=== PATIENT | female | born 1935 | race Caucasian/White ===

== ENCOUNTER 2019-09-26 18:02 | Inpatient (IN) | payer MEDICARE ==
[~2019-09-26] VITALS: Ht 154.9 cm; Wt 74.4 kg
[2019-09-26 18:16] VITALS: BP 204/95
[2019-09-26] MEDS ORDERED: ASA81BEC PO (18:19)
[2019-09-26] MEDS ORDERED: LORATIDINE 10 M10 M1 PO (18:19)
[2019-09-26] MEDS ORDERED: LEVO-T100 MCG PO (18:20)
[2019-09-26] MEDS ORDERED: SUPER THERAVIT1 EACH PO (18:20)
[2019-09-26] MEDS ORDERED: COZAAR 25 MG TA25 M1 PO (18:20)
[2019-09-26] MEDS ORDERED: VITAMIN D31250 MCG PO (18:20)
[2019-09-26] MEDS ORDERED: ALLOPURINOL 10100 M3 PO (18:20)
[2019-09-26] MEDS ORDERED: ISOSORBIDE DINI20 M2 PO (18:21)
[2019-09-26] MEDS ORDERED: CLONIDINE HCL0.2 M2 PO (18:21)
[2019-09-26] MEDS ORDERED: TRAZODONE HCL50 MG PO (18:22)
[2019-09-26] MEDS ORDERED: LOPRESSOR50 MG PO (18:22)
[2019-09-26] MEDS ORDERED: MAGNESIUM250 M1 PO (18:22)
[2019-09-26] MEDS ORDERED: LIPITOR80 MG PO (18:22)
[2019-09-26] MEDS ORDERED: BREO ELLIPTA 11 EACH INH (18:22)
[2019-09-26] MEDS ORDERED: NOVOLIN N100 UNIT/1 (18:23)
[2019-09-26] MEDS ORDERED: FLONASE 0.05%50 MCG NARES (18:23)
[2019-09-26] MEDS ORDERED: BASAGLAR K100 UNIT/1 SUBQ (18:24)
[2019-09-26] MEDS ORDERED: SYSTANE 0.3-0.415 ML OPHTHALMIC (18:24)
[2019-09-26 19:00] LABS: ABSOLUTE BASOPHILS 0.1 thou/uL (0.0-0.2); ABSOLUTE EOSINOPHILS 0.3 thou/uL (0.0-0.7); ABSOLUTE LYMPHOCYTES 2.2 thou/uL (0.8-5.3); ABSOLUTE MONOCYTES 0.8 thou/uL (0.0-1.2); ABSOLUTE NEUTROPHILS 4.7 thou/uL (1.6-8.1); BASOPHILS 1.1 %; EOSINOPHILS 4.3 %; HEMATOCRIT 37.4 % (37.0-47.0); HEMOGLOBIN 12.8 gm/dL (12.0-15.0); LYMPHOCYTES 26.6 %; MCH 34.1 pg (26.0-34.0); MCHC 34.1 g/dL (28.0-37.0); MCV 99.9 fL (80.0-100.0); MONOCYTES 10.4 %; NUCLEATED RBCS 0 /100WBC; PLATELET COUNT* 187 thou/uL (150-400); POLYS 57.6 %; RBC 3.74 mil/uL (4.20-5.00); RDW-CV 14.3 % (10.5-14.5); WBC 8.1 thou/uL (4.0-11.0)
[2019-09-26 19:05] LABS: CALCIUM 8.7 mg/dL (8.5-10.1); CREATININE 1.2 mg/dL (0.6-1.3); POTASSIUM 4.2 mmol/L (3.5-5.1)
[2019-09-26 19:09] LABS: ALBUMIN 3.2 g/dL (3.4-5.0); TOTAL BILIRUBIN 0.4 mg/dL (<0.1-1.0); TOTAL PROTEIN 6.9 g/dL (6.4-8.2)
[2019-09-26 19:32] LABS: APTT 26.3 Seconds (25.0-31.3); PROTIME 10.5 Seconds (9.20-11.50)
[2019-09-26 21:30] VITALS: BP 143/70
[2019-09-26] MEDS ORDERED: NOVOLIN R100 UNIT/1 SUBQ ×3 (22:27→22:29)
[2019-09-26] MEDS ORDERED: LASIX 40 MG TAB40 MG PO (22:51)
[2019-09-27 00:30] VITALS: BP 171/74
[2019-09-27 02:49] LABS: URINE BILIRUBIN NEGATIVE (Negative); URINE BLOOD NEGATIVE (Negative); URINE CLARITY CLEAR; URINE COLOR YELLOW; URINE GLUCOSE-RANDOM NEGATIVE (Negative); URINE KETONES NEGATIVE (Negative); URINE LEUKOCYTES-REFLEX 1+ (Negative); URINE NITRITE-REFLEX NEGATIVE (Negative); URINE PROTEIN NEGATIVE (Negative); URINE SPECIFIC GRAVITY <= 1.005 (1.005-1.030); URINE UROBILINOGEN 0.2 E.U./dl (0.2-1.0)
[2019-09-27 02:55] LABS: CASTS None Seen /LPF (None Seen); SQUAMOUS 4-10 Moderate /LPF (0-3); URINE RBC None Seen /HPF (0-2); URINE WBC-REFLEX 6-15 Few /HPF (0-5)
[2019-09-27 02:56] LABS: BACTERIA-REFLEX 1-9 Few /HPF (None Seen); CRYSTALS None Seen /LPF (None Seen)
[2019-09-27 04:39] VITALS: BP 183/82
[2019-09-27 08:35] VITALS: BP 176/86
--- NOTE | 2019-09-27 10:14 | EKG ---
[place] [address] ELECTROCARDIOGRAM REPORT Name: NINO ASH Room: [address] ADM [place] [facility].#: [id number] Admission: 09/26/19 Attend Phys: Teja baeza Sa Discharge: Date of : 35 Date of Service: 09/26/192121 Report #: [id number] THIS REPORT FOR: //name// [facility] ED Test Date: 2019-09-26 Test Time: 21:22:08 Pat Name: NINO ASH Department: Room: [facility] Gender: F Clinical Research Specialist: DEBI : 1935 Requested By: Michael Lindsay Order Number: [id number] MD: Keith Paz Measurements Intervals [place] Rate: 61 P: 44 [place]: 194 QRS: -17 QRSD: 148 T: 151 QT: 466 QTc: 470 Interpretive Statements Sinus rhythm Left bundle branch block No previous ECG available for comparison Electronically Signed On 09-27-2019 10:12:38 CDT by Keith Paz [email or web address] <ELECTRONICALLY SIGNED> By: Keith Paz MD, [facility] 09/27/192 21 21 Keith Paz MD, [facility] /EPI
[2019-09-27 16:25] VITALS: BP 179/70
[2019-09-27 20:00] VITALS: BP 196/89
[2019-09-27 23:30] VITALS: BP 137/56
[2019-09-28 04:16] VITALS: BP 151/52
[2019-09-28 05:18] LABS: ABSOLUTE BASOPHILS 0.1 thou/uL (0.0-0.2); ABSOLUTE EOSINOPHILS 0.3 thou/uL (0.0-0.7); ABSOLUTE LYMPHOCYTES 2.1 thou/uL (0.8-5.3); ABSOLUTE MONOCYTES 0.7 thou/uL (0.0-1.2); ABSOLUTE NEUTROPHILS 4.3 thou/uL (1.6-8.1); BASOPHILS 1.1 %; EOSINOPHILS 4.6 %; HEMATOCRIT 34.3 % (37.0-47.0); HEMOGLOBIN 11.7 gm/dL (12.0-15.0); LYMPHOCYTES 27.6 %; MCH 34.1 pg (26.0-34.0); MCV 100.1 fL (80.0-100.0); MONOCYTES 9.9 %; MPV 9.9 fl. (7.2-11.1); NUCLEATED RBCS 0 /100WBC; PLATELET COUNT* 166 thou/uL (150-400); POLYS 56.8 %; RBC 3.43 mil/uL (4.20-5.00); WBC 7.5 thou/uL (4.0-11.0)
[2019-09-28 05:28] LABS: MAGNESIUM 1.6 mg/dL (1.8-2.4); PHOSPHORUS* 4.9 mg/dL (2.5-4.9)
[2019-09-28 05:33] LABS: ALBUMIN 2.8 g/dL (3.4-5.0); CALCIUM 7.8 mg/dL (8.5-10.1); CREATININE 1.5 mg/dL (0.6-1.3); POTASSIUM 3.9 mmol/L (3.5-5.1); TOTAL BILIRUBIN 0.4 mg/dL (<0.1-1.0); TOTAL PROTEIN 6.1 g/dL (6.4-8.2)
[2019-09-28 08:30] VITALS: BP 156/58
[2019-09-28 16:00] VITALS: BP 155/57
[2019-09-28 19:30] VITALS: BP 167/68
[2019-09-29 08:00] VITALS: BP 143/69
[2019-09-29] MEDS ORDERED: CEFDINIR300 MG PO (10:41)
[2019-09-29 11:06] VITALS: BP 143/69
[2019-09-29 11:36] VITALS: BP 143/69
== END 2019-09-29 12:21 | disposition home or self-care (01) | DRG 177 ==
LOC: M.ERS 18:02 → M.TBA-ER 19:47 → M.ORTHSURG 19:47 → M.2W 20:47 → M.ORTHSURG 20:48
PROVIDERS: Internal Medicine; Physician Assistant; Surgery; ADMIT Family Medicine
DX: J15.6 Pneumonia due to other Gram-negative bacteria (principal); J96.01 Acute respiratory failure with hypoxia; I10 Essential (primary) hypertension; E03.9 Hypothyroidism, unspecified; I25.10 Atherosclerotic heart disease of native coronary artery without angina pectoris; Z20.828 Contact with and (suspected) exposure to other viral communicable diseases; M19.90 Unspecified osteoarthritis, unspecified site; E11.51 Type 2 diabetes mellitus with diabetic peripheral angiopathy without gangrene; E83.42 Hypomagnesemia; E86.0 Dehydration; Z88.6 Allergy status to analgesic agent; Z88.8 Allergy status to other drugs, medicaments and biological substances; Z79.4 Long term (current) use of insulin; Z79.82 Long term (current) use of aspirin; Z79.899 Other long term (current) drug therapy; Z95.1 Presence of aortocoronary bypass graft

== ENCOUNTER 2020-03-24 12:13 | Inpatient (IN) | payer MEDICARE ==
[~2020-03-24] VITALS: Ht 154.9 cm; Wt 70.0 kg
--- NOTE | ~2020-03-24 | EMS ---
[address] [address] EMS Patient Care Report Name: NINO HO Room: [address] IN [facility]#: [id number] Admission: 03/24/20 Attend Phys: Carmella Tsai MD Discharge: Date of : 35 Report #: [id number] THIS REPORT FOR: //name// Report Transmitted: 03/26/2020 11:56 EMS Care Summary ANSEL[place] Incident [id number] @ 03/24/2020 11:23 Incident Location [address] [address] Patient nino ho Female, 85 Years 1935 Patient Address [address] [address] Patient History Coronary Artery Bypass Graft (CABG),Cancer - Other Cancer Condition,Hypertension (HTN),Endocrine Condition - Other, Patient Allergies , Patient Medications Aspirin, Claritin, , Allopurinol, , , Lipitor, Trazodone, Singulair, Chief Complaint Fall Disposition Transported No Lights/[place] Reason Unknown Problem/Person Down Transported To [facility] Narrative Amr Milton was dispatched to above address. Anselmo 316 arrived on scene without incident. Upon arrival, Anselmo 316 entered the home and observed a woman sitting in a chair in the living room. Patient's stated that the patient fell [address] [address] EMS Patient Care Report Name: NINO HO Room: [address] IN [facility]#: [id number] Admission: 03/24/20 Attend Phys: Carmella Tsai MD Discharge: Date of : 35 Report #: [id number] off the curb, near the street, five days ago. Patient stated that she just lost her balance and did not hit her head or lose consciousness. She stated that she went to her PCP after the fall and he took x-rays and told her nothing was broken. Patient stated that the pain in her left knee, left elbow, left hip, and left ribs has gotten worse. She did have bruising and swelling on her left knee. She had good pulse, motor, and sensory in her left foot and left hand. Patient also stated that she has not been eating well or taking any of her medications since the fall, five days ago. Amr 316 helped the patient from her chair and onto the cot. While transferring to the cot, patient accidentally urinated on the floor. Once on the cot, patient was secured with all seatbelts and loaded into the ambulance. Once in the ambulance, patient began complaining of nausea. She also stated that she has been unable to hold her urine in and accidentally went while on the cot too. Vitals and 12-lead were obtained. IV was established and patient was placed on a nasal cannula after stating that she was short of breath. Patient was transported to [place] upon her request. Patient was continuously monitored en route with no significant changes noted. Patient rested comfortably on the cot en route to the hospital. Amr 316 arrived to destination without incident. Upon arrival, patient was taken to ER 11. Patient was transferred from cot to bed via drawsheet. Report and paperwork were given to nurse. Care was transferred at that time. Amr 316 clear. Initial Vitals @11:46SpO2: 92, @11:50SpO2: 98, @11:44 @11:50Temp: 98.06F, @11:43P: 112,R: 16,BP: 226/116,Revised Trauma: 8, @11:53P: 108,R: 16,BP: 202/102,Revised Trauma: 8, @12:03P: 108,R: 16,BP: 196/88,Revised Trauma: 8, @11:43GCS: 15, @11:53GCS: 15, @12:03GCS: 15, Assessments @11:30MENTAL:SKIN:HEENT:LUNG SOUNDS:ABDOMEN:PELVIS//GI:EXTREMITIES:PULSE:NEURO: Impression Acute Pain, not elsewhere classified Procedures @11:54Ondansetron - 4.000 Milligrams (mg) - Intravenous (IV)Response: Improved@11:45Other - Medication - 2.000 Liters per Minute (l/min [fluid]) - Nasal CannulaResponse: Improved@11:53 cc () Site: Hand-RightResponse: UnchangedSucceeded@11:4412-Lead ECGResponse: [place] [address] EMS Patient Care Report Name: NINO HO Room: [address] IN [facility]#: [id number] Admission: 03/24/20 Attend Phys: Carmella Tsai MD Discharge: Date of : 35 Report #: [id number] Timeline 11:23,Call Received 11:23,Dispatch Notified 11:23,Psap Call 11:23,Dispatched 11:24,En Route 11:28,On Scene 11:30,At Patient 11:43,BP: 226/116 M,PULSE: 112,RR: 16 R,SPO2: Ox,ETCO2: ,BG: ,PAIN: ,GCS: , 11:43,BP: / M,PULSE: ,RR: R,SPO2: Ox,ETCO2: ,BG: ,PAIN: ,GCS: 15, 11:44,12-Lead ECG,Response: UnchangedSucceeded, 11:44,BP: / M,PULSE: ,RR: R,SPO2: Ox,ETCO2: ,BG: ,PAIN: ,GCS: , 11:45,Other - Medication - 2.000 Liters per Minute (l/min [fluid]) - Nasal Cannula,Response: Improved 11:46,BP: / M,PULSE: ,RR: R,SPO2: 92 Ox,ETCO2: ,BG: ,PAIN: ,GCS: , 11:50,Depart Scene 11:50,BP: / M,PULSE: ,RR: R,SPO2: 98 Ox,ETCO2: ,BG: ,PAIN: ,GCS: , 11:50,BP: / M,PULSE: ,RR: R,SPO2: Ox,ETCO2: ,BG: ,PAIN: ,GCS: , 11:53, cc Site: Hand-Right,Response: UnchangedSucceeded, 11:53,BP: 202/102 M,PULSE: 108,RR: 16 R,SPO2: Ox,ETCO2: ,BG: ,PAIN: ,GCS: , 11:53,BP: / M,PULSE: ,RR: R,SPO2: Ox,ETCO2: ,BG: ,PAIN: ,GCS: 15, 11:54,Ondansetron - 4.000 Milligrams (mg) - Intravenous (IV),Response: Improved 12:03,BP: 196/88 M,PULSE: 108,RR: 16 R,SPO2: Ox,ETCO2: ,BG: ,PAIN: ,GCS: , 12:03,BP: / M,PULSE: ,RR: R,SPO2: Ox,ETCO2: ,BG: ,PAIN: ,GCS: 15, 12:07,At Destination 12:25,Call Closed Disclaimer v1.1 Copyright 2020 [employer] This EMS Care Summary contains data elements from the applicable legal record (which may be displayed differently). It is designed to provide pertinent information for the following purposes: continuity of care, clinical quality, and state data reporting. The complete legal record is available to ED staff and administrators of the receiving hospital in [employer] Patient Tracker. All data is provided "as is."
[~2020-03-24 12:13] MED LIST: ALLOPURINOL 10100 M3 PO; ASA81BEC PO; BASAGLAR K100 UNIT/1 SUBQ; BREO ELLIPTA 11 EACH INH; CEFDINIR300 MG PO; CLONIDINE HCL0.2 M2 PO; COZAAR 25 MG TA25 M1 PO; FLONASE 0.05%50 MCG NARES; ISOSORBIDE DINI20 M2 PO; LASIX 40 MG TAB40 MG PO; LEVOTHYROXINE125 MCG PO; LIPITOR80 MG PO; LOPRESSOR50 MG PO; LORATIDINE 10 M10 M1 PO; MAGNESIUM250 M1 PO; NOVOLIN N100 UNIT/1; NOVOLIN R100 UNIT/1 SUBQ; SUPER THERAVIT1 EACH PO; SYSTANE 0.3-0.415 ML OPHTHALMIC; TRAZODONE HCL50 MG PO; VITAMIN D31250 MCG PO
[2020-03-24 12:17] VITALS: BP 201/99
[2020-03-24] MEDS ORDERED: PROTONIX40 M4 PO (12:37)
[2020-03-24] MEDS ORDERED: VITAMIN D PO (12:40)
[2020-03-24] MEDS ORDERED: CLONIDINE PO (12:41)
[2020-03-24] MEDS ORDERED: SINGULAIR 10 MG10 MG PO (12:43)
[2020-03-24] MEDS ORDERED: OMEGA 3 1,0001 EACH PO (12:45)
[2020-03-24 12:58] LABS: ABSOLUTE BASOPHILS 0.1 thou/uL (0.0-0.2); ABSOLUTE LYMPHOCYTES 0.7 thou/uL (0.8-5.3); ABSOLUTE NEUTROPHILS 12.3 thou/uL (1.6-8.1); BASOPHILS 0.5 %; HEMATOCRIT 41.5 % (37.0-47.0); HEMOGLOBIN 13.6 gm/dL (12.0-15.0); MCH 32.3 pg (26.0-34.0); MCHC 32.9 g/dL (28.0-37.0); MCV 98.1 fL (80.0-100.0); MONOCYTES 6.9 %; MPV 9.7 fl. (7.2-11.1); NUCLEATED RBCS 0 /100WBC; PLATELET COUNT* 194 thou/uL (150-400); POLYS 87.6 %; RBC 4.23 mil/uL (4.20-5.00); RDW-CV 14.2 % (10.5-14.5)
[2020-03-24 13:02] LABS: URINE BILIRUBIN NEGATIVE (Negative); URINE BLOOD 1+ (Negative); URINE CLARITY CLEAR; URINE COLOR YELLOW; URINE GLUCOSE-RANDOM NEGATIVE (Negative); URINE KETONES NEGATIVE (Negative); URINE LEUKOCYTES-REFLEX NEGATIVE (Negative); URINE NITRITE-REFLEX NEGATIVE (Negative); URINE PROTEIN 2+ (Negative); URINE SPECIFIC GRAVITY >= 1.030 (1.005-1.030); URINE UROBILINOGEN 0.2 E.U./dl (0.2-1.0)
[2020-03-24 13:08] LABS: CALCIUM 9.5 mg/dL (8.5-10.1); CREATININE 1.8 mg/dL (0.6-1.3); POTASSIUM 4.6 mmol/L (3.5-5.1)
[2020-03-24 13:09] LABS: CASTS None Seen /LPF (None Seen); CRYSTALS None Seen /LPF (None Seen); SQUAMOUS 0-3 Few /LPF (0-3); URINE RBC 0-2 Rare /HPF (0-2); URINE WBC-REFLEX 0-5 Rare /HPF (0-5)
[2020-03-24 13:13] LABS: APTT 24.1 Seconds (25.0-31.3); PROTIME 10.9 Seconds (9.20-11.50)
[2020-03-24 13:19] LABS: ALBUMIN 3.5 g/dL (3.4-5.0); TOTAL BILIRUBIN 1.1 mg/dL (<0.1-1.0); TOTAL PROTEIN 8.5 g/dL (6.4-8.2)
[2020-03-24 18:30] VITALS: BP 200/81
[2020-03-24 19:45] VITALS: BP 196/85
[2020-03-24 20:14] VITALS: BP 179/69
[2020-03-25 04:35] LABS: HEMATOCRIT 35.6 % (37.0-47.0); HEMOGLOBIN 11.8 gm/dL (12.0-15.0); MCH 32.9 pg (26.0-34.0); MCHC 33.2 g/dL (28.0-37.0); MCV 99.1 fL (80.0-100.0); MPV 9.6 fl. (7.2-11.1); RBC 3.59 mil/uL (4.20-5.00); RDW-CV 14.3 % (10.5-14.5); WBC 10.6 thou/uL (4.0-11.0)
[2020-03-25 04:59] LABS: CALCIUM 8.1 mg/dL (8.5-10.1); CREATININE 1.2 mg/dL (0.6-1.3); MAGNESIUM 1.8 mg/dL (1.8-2.4)
[2020-03-25 05:37] LABS: POTASSIUM 4.1 mmol/L (3.5-5.1)
[2020-03-25 07:55] VITALS: BP 201/87
--- NOTE | 2020-03-25 08:59 | EKG ---
[place] [address] ELECTROCARDIOGRAM REPORT Name: NINO ASH Room: [address] ADM IN ..#: [id number] Admission: 03/24/20 Attend Phys: Carmella Tsai, Discharge: Date of : 35 Date of Service: 03/24/20 1219 Report #: [id number] THIS REPORT FOR: //name// [facility] ED Test Date: 2020-03-24 Test Time: 12:19:17 Pat Name: NINO ASH Department: Room: [facility] Gender: F Time Lock Expert: : 1935 Requested By: Ole Thompson Order Number: [id number] MD: Keith Paz Measurements Intervals [place] Rate: 106 P: 49 [place]: 162 QRS: -4 QRSD: 146 T: 179 QT: 388 QTc: 516 Interpretive Statements Sinus tachycardia Atrial premature complex Left bundle branch block Baseline wander in lead(s) V2 Compared to ECG 09/26/2019 21:22:08 Atrial premature complex(es) now present Sinus rhythm no longer present Electronically Signed On 03-25-2020 8:59:36 CRATE TIER by Keith Paz [email or web address] <ELECTRONICALLY SIGNED> By: Keith Paz MD, FACC 03/25/20 0859 18 Keith Paz MD, FAC /EPI
[2020-03-25 11:48] VITALS: BP 109/45
[2020-03-25 15:49] VITALS: BP 132/51
[2020-03-25 20:23] VITALS: BP 119/55
[2020-03-26 00:08] VITALS: BP 129/64
[2020-03-26 07:43] LABS: HEMATOCRIT 35.2 % (37.0-47.0); HEMOGLOBIN 11.5 gm/dL (12.0-15.0); MCH 32.5 pg (26.0-34.0); MCHC 32.8 g/dL (28.0-37.0); MCV 99.1 fL (80.0-100.0); MPV 9.4 fl. (7.2-11.1); RBC 3.55 mil/uL (4.20-5.00); RDW-CV 14.3 % (10.5-14.5); WBC 10.8 thou/uL (4.0-11.0)
[2020-03-26 07:45] VITALS: BP 129/59
[2020-03-26 07:50] LABS: CALCIUM 8.2 mg/dL (8.5-10.1); CREATININE 1.6 mg/dL (0.6-1.3); MAGNESIUM 2.1 mg/dL (1.8-2.4); POTASSIUM 4.6 mmol/L (3.5-5.1)
[2020-03-26] MEDS ORDERED: TRESIBA100 UNIT/1 SUBQ (12:54)
[2020-03-26 16:00] VITALS: BP 170/77
[2020-03-26 20:00] VITALS: BP 168/77
[2020-03-27 07:45] VITALS: BP 192/78
[2020-03-27 10:51] LABS: HEMATOCRIT 33.1 % (37.0-47.0); HEMOGLOBIN 10.9 gm/dL (12.0-15.0); MCH 32.6 pg (26.0-34.0); MCV 98.6 fL (80.0-100.0); MPV 9.3 fl. (7.2-11.1); NUCLEATED RBCS 0 /100WBC; PLATELET COUNT* 190 thou/uL (150-400); RBC 3.36 mil/uL (4.20-5.00); WBC 11.8 thou/uL (4.0-11.0)
[2020-03-27 11:13] LABS: CALCIUM 7.9 mg/dL (8.5-10.1); CREATININE 1.3 mg/dL (0.6-1.3); POTASSIUM 4.7 mmol/L (3.5-5.1)
[2020-03-27 11:24] LABS: ABSOLUTE LYMPHOCYTES 2.2 thou/uL (0.8-5.3); ABSOLUTE MONOCYTES 1.2 thou/uL (0.0-1.2); ABSOLUTE NEUTROPHILS 8.4 thou/uL (1.6-8.1); ATYPICAL LYMPHS 1 %; PLATELET ESTIMATE ADEQUATE
[2020-03-27 16:44] VITALS: BP 179/74
[2020-03-27 20:00] VITALS: BP 185/74
[2020-03-27 21:00] VITALS: BP 148/52
[2020-03-28 04:57] LABS: HEMATOCRIT 33.3 % (37.0-47.0); MCH 32.4 pg (26.0-34.0); MCHC 33.1 g/dL (28.0-37.0); MCV 97.8 fL (80.0-100.0); MPV 9.6 fl. (7.2-11.1); RBC 3.4 mil/uL (4.20-5.00); RDW-CV 14.3 % (10.5-14.5); WBC 12.5 thou/uL (4.0-11.0)
[2020-03-28 05:17] LABS: ALBUMIN 1.9 g/dL (3.4-5.0); CALCIUM 8.4 mg/dL (8.5-10.1); CREATININE 1.3 mg/dL (0.6-1.3); POTASSIUM 4.5 mmol/L (3.5-5.1); TOTAL BILIRUBIN 0.7 mg/dL (<0.1-1.0); TOTAL PROTEIN 6.4 g/dL (6.4-8.2)
[2020-03-28 08:10] VITALS: BP 166/67
[2020-03-28 16:21] VITALS: BP 158/71
[2020-03-28 20:24] VITALS: BP 169/71
[2020-03-29 07:50] VITALS: BP 184/68
[2020-03-29 17:00] VITALS: BP 171/75
[2020-03-29 19:23] VITALS: BP 178/72
[2020-03-30 08:21] VITALS: BP 190/67
[2020-03-30 20:22] VITALS: BP 178/72
[2020-03-31 07:25] VITALS: BP 183/82
[2020-03-31 10:11] VITALS: BP 133/51
[2020-03-31 16:38] VITALS: BP 143/65
[2020-03-31 19:45] VITALS: BP 152/67
[2020-04-01 05:19] LABS: HEMATOCRIT 32.4 % (37.0-47.0); HEMOGLOBIN 10.7 gm/dL (12.0-15.0); MCH 32.1 pg (26.0-34.0); MCHC 33.2 g/dL (28.0-37.0); MCV 96.8 fL (80.0-100.0); MPV 9.7 fl. (7.2-11.1); RBC 3.35 mil/uL (4.20-5.00); RDW-CV 14.2 % (10.5-14.5); WBC 7.9 thou/uL (4.0-11.0)
[2020-04-01 05:58] LABS: CALCIUM 9.3 mg/dL (8.5-10.1); CREATININE 1.3 mg/dL (0.6-1.3); MAGNESIUM 1.7 mg/dL (1.8-2.4); POTASSIUM 3.7 mmol/L (3.5-5.1)
[2020-04-01] MEDS ORDERED: LIDOPATCH1 EACH TOP (07:54)
[2020-04-01] MEDS ORDERED: NORVASC10 MG PO (07:54)
[2020-04-01] MEDS ORDERED: LANTUS SUBQ (07:54)
[2020-04-01] MEDS ORDERED: PAIN RELIEVER500 MG PO (07:54)
[2020-04-01] MEDS ORDERED: HUMALOG100 UNIT/1 SUBQ (07:54)
[2020-04-01] MEDS ORDERED: ISORDIL40 M1 PO (07:54)
[2020-04-01] MEDS ORDERED: VANCOMYCIN HCL125 MG PO (07:54)
[2020-04-01] MEDS ORDERED: TRAMADOL 50 MG50 MG PO (07:54)
[2020-04-01 07:55] VITALS: BP 178/67
[2020-04-01] MEDS ORDERED: CYMBALTA30 MG PO (07:57)
[2020-04-01] MEDS ORDERED: ENOXAPARIN30 MG/0.1 SUBQ (07:57)
[2020-04-01 16:06] VITALS: BP 137/60
[2020-04-01 16:30] VITALS: BP 137/60
== END 2020-04-01 18:06 | DRG 542 ==
LOC: M.ERS 12:13 → M.3W 13:49 → M.TBA-ER 13:49 → M.3W 19:56
PROVIDERS: Family Medicine; Internal Medicine; ADMIT Internal Medicine; ATTEND Internal Medicine
PROC: 2W3RX3Z Immobilization of Left Lower Leg using Brace (ICD-10-PCS; principal; 2020-03-26)
DX: M80.052A Age-related osteoporosis with current pathological fracture, left femur, initial encounter for fracture (principal); R65.11 Systemic inflammatory response syndrome (SIRS) of non-infectious origin with acute organ dysfunction; E43 Unspecified severe protein-calorie malnutrition; S82.145A Nondisplaced bicondylar fracture of left tibia, initial encounter for closed fracture; N17.9 Acute kidney failure, unspecified; A04.72 Enterocolitis due to Clostridium difficile, not specified as recurrent; N39.0 Urinary tract infection, site not specified; F32.9 Major depressive disorder, single episode, unspecified; G89.29 Other chronic pain; I25.10 Atherosclerotic heart disease of native coronary artery without angina pectoris; E03.9 Hypothyroidism, unspecified; E11.9 Type 2 diabetes mellitus without complications; R53.1 Weakness; S80.02XA Contusion of left knee, initial encounter; I10 Essential (primary) hypertension; M11.262 Other chondrocalcinosis, left knee; W10.1XXA Fall (on)(from) sidewalk curb, initial encounter; Z20.828 Contact with and (suspected) exposure to other viral communicable diseases; Y93.89 Activity, other specified; Z79.4 Long term (current) use of insulin; Z79.82 Long term (current) use of aspirin; Z79.899 Other long term (current) drug therapy; Z88.8 Allergy status to other drugs, medicaments and biological substances; Z88.5 Allergy status to narcotic agent; Y92.89 Other specified places as the place of occurrence of the external cause; Y99.8 Other external cause status; Z68.29 Body mass index [BMI] 29.0-29.9, adult